=== PATIENT | female | born 1930 | race Caucasian/White ===

== ENCOUNTER → 2016-10-20 | Outpatient (CLI) | payer MEDICARE, OTHER ==
--- NOTE | 2016-10-20 09:40 | RAD ---
Indication: Chronic kidney disease type III. The right kidney measures 11.1 x 4.6 x 4.9 cm and the left kidney measures 11.7 x 4.3 x 5.7 cm. The cortical thickness and echogenicity is normal bilaterally. No calculi are seen. There is no hydronephrosis. The bladder is decompressed. Impression: Unremarkable renal ultrasound.
[2016-10-20 09:49] LABS: HEMATOCRIT 44.1 % (36.0-47.0); HEMOGLOBIN 14.5 g/dL (12.0-15.5)
[2016-10-20 10:03] LABS: ALBUMIN 3.4 g/dL (3.4-5.0); CALCIUM 9.1 mg/dL (8.5-10.1); GFR 52.4; PHOSPHORUS 3.3 mg/dL (2.6-4.7); POTASSIUM 4.5 mmol/L (3.5-5.1)
[2016-10-20 18:13] LABS: PROTEIN RANDOM URINE 36.9 mg/dL (Not Estab.)
[2016-10-21 07:31] LABS: PTH INTACT 71 pg/mL (15-65)
== END | disposition home or self-care (01) ==
LOC: US 09:09
PROVIDERS: ATTEND Internal Medicine Nephrology
DX: N18.3 Chronic kidney disease, stage 3 (moderate) (principal)
CPT/HCPCS: 36415; 76770; 80069; 82043; 82570; 83970; 84156; 85014; 85018